=== PATIENT | female | born 1995 | race Caucasian/White ===

== ENCOUNTER 2017-12-21 07:08 | Emergency (ER) | payer BC ==
[2017-12-21] MEDS ORDERED: Ondansetron ODT TAB* 4 MG PO ONE (07:18)
[2017-12-21 07:26] VITALS: BP 126/78
--- NOTE | 2017-12-21 17:29 | UC ---
Brock Rodrigues Angela, scribed for Jermaine Carpenter MD on 12/21/17 at 0714 . General HPI - HPI Summary HPI Summary: This pt is a 22 y/o female presenting to [facility] c/o dizziness, nausea, headache since yesterday and abdominal pain since today. She describes her dizziness like feeling of almost passing out. Pt additionally notes sore throat and runny nose since 3 days ago, now worsening. Pt states she believes she might have the flu. Denies fever, chest pain, SOB. Pt has history of type 1 insulin dependent diabetes and her glucose level normally runs between 160 and 180. Pt admits to occasional alcohol use, denies tobacco or drug use. - History of Current Complaint Stated Complaint: CONGESTED, VOMITTING, LIGHTHEADED Time Seen by Provider: 12/21/17 07:10 Hx Obtained From: Patient Onset/Duration: Lasting Days, Still Present Timing: Constant Current Severity: Moderate Pain Location at: abdomen, head Aggravating: nothing Alleviating: nothing Associated Signs & Symptoms: Positive: Abdominal Pain, Dizziness, Headache, Nausea, Other - POS: sore throat, sinus congestion, runny nose. Negative: Chest Pain, Fever, SOB - Allergy/Home Medications Allergies/Adverse Reactions: Allergies Allergy/AdvReac Type Severity Reaction Status Date / Time No Known Allergies Allergy Verified 12/21/17 07:14 PMH/Surg Hx/FS Hx/Imm Hx Endocrine History: Diabetes - type 1 Other Cardiovascular History: DENIES: HTN - Surgical History Surgical History: None - Family History Known Family History: Positive: Diabetes - type 1 and 2 Negative: Cardiac Disease, Hypertension - Social History Alcohol Use: Occasionally Substance Use Type: None Smoking Status (MU): Never Smoked Tobacco Review of Systems Constitutional: Negative Skin: Negative Eyes: Negative ENT: Sore Throat, Nasal Discharge, Sinus Congestion Respiratory: Negative Cardiovascular: Negative Gastrointestinal: Abdominal Pain, Nausea Genitourinary: Negative Motor: Negative Neurovascular: Negative Musculoskeletal: Negative Neurological: Headache, Other - POS: dizziness Psychological: Negative All Other Systems Reviewed And Are Negative: Yes Physical Exam - Summary Physical Exam Summary: VITAL SIGNS: Reviewed. GENERAL: Patient is a well-developed and nourished female who is lying comfortable in the stretcher. Patient is not in any acute respiratory distress. HEAD AND FACE: Normocephalic EYES: PERRLA, EOMI x 2. EARS: Hearing grossly intact. MOUTH: Oropharynx within normal limits. NECK: Supple, trachea is midline, no adenopathy, no JVD, no carotid bruit. CHEST: Symmetric, no tenderness at palpation LUNGS: Clear to auscultation bilaterally. No wheezing or crackles. CVS: Regular rate and rhythm, S1 and S2 present, no murmurs or gallops appreciated. ABDOMEN: Soft, non-tender. Bowel sounds are normal. No abdominal abnormal pulsations. EXTREMITIES: Full ROM in all major joints, no edema, no cyanosis or clubbing. NEURO: Alert and oriented x 3. No acute neurological deficits. Speech is normal and follows commands. SKIN: Dry and warm Triage Information Reviewed: Yes Vital Signs Reviewed: Yes Re-Evaluation - Re-Evaluation First Eval Re-Evaluation Time: 07:59 Change: Unchanged Comment: Pt still has lower abd pain and dizziness. Pt has ketones in POC urine and is a type 1 diabetic. Therefore she will be transferred to the ED. Course/Dx - Course Course Of Treatment: This pt is a 22 y/o female presenting to [facility] c/o dizziness , nausea, abdominal pain, headache. Pt additionally notes sore throat and runny nose since 3 days ago. She describes her dizziness like feeling of almost passing out. Pt states she believes she might have the flu. Pt has hx of type 1 insulin dependent diabetes and her glucose level normally runs between 160 and 180. Influenza A and B are both negative. Rapid strep test is negative. POC urine shows 3+ ketones and 1+ bilirubin. In the UC course the pt was given Zofran. On re-evaluation the pt still has lower abd pain and dizziness. Since she has ketones in her urine and is a type 1 diabetic, pt will be transferred to the ED for further assessment. Pt was offered ambulance but she declined ambulance, she will go to the ED by private car. Test resulst and findings were discussed with the patient and pt understands and agrees. All questions were answered to patient satisfaction. Pt will be discharged to go immediately to the emergency department. Pt is hemodynamically stable, alert and oriented x3. The patient was found to have increased blood pressure in UC. The patient will follow up with PCP for better control of BP. - Differential Dx - Multi-Symptom Provider Diagnoses: Dizziness. Abdominal pain. Nausea Discharge - Sign-Out/Discharge Documenting (check all that apply): Discharge - discharge to home - Discharge Plan Condition: Stable Disposition: HOME Patient Education Materials: Acute Nausea and Vomiting (ED), Abdominal Pain (ED ), Dizziness (ED) Referrals: [facility] [Primary Care Provider] - Additional Instructions: Patient will discharged to the ED for further assessment. She declined ambulance. FOLLOW UP WITH YOUR PRIMARY CARE PROVIDER WITHIN ONE WEEK FOR HIGH BLOOD PRESSURE NOTED TODAY. RETURN TO URGENT CARE OR THE ED FOR ANY WORSENING OR NEW SYMPTOMS. The documentation as recorded by the Brock mena Angela accurately reflects the service I personally performed and the decisions made by , Jermaine Carpenter MD.
== END 2017-12-21 08:13 | disposition home or self-care (01) ==
LOC: UCEAST 07:08
DX: R42 Dizziness and giddiness (principal); R10.30 Lower abdominal pain, unspecified; R11.0 Nausea; R51 Headache; J02.9 Acute pharyngitis, unspecified; R09.89 Other specified symptoms and signs involving the circulatory and respiratory systems; Z32.02 Encounter for pregnancy test, result negative; E10.9 Type 1 diabetes mellitus without complications; Z79.4 Long term (current) use of insulin
CPT/HCPCS: 81003; 84702; 87502; 87651; 99212; A9270-GY; G0463

== ENCOUNTER 2017-12-21 08:33 | Emergency (ER) | payer BC ==
[2017-12-21] MEDS ORDERED: NS 0.9% 1000 ML* 2,000 ML IV ONE (08:55)
[2017-12-21] MEDS ORDERED: Ondansetron INJ* 2 MG/ML VIAL IV ONE (08:55)
[2017-12-21 09:18] LABS: ABS Basophils 0.1 10^3/ul (0-0.2); ABS Eosinophils 0.1 10^3/ul (0-0.6); ABS Lymphocytes 1.2 10^3/ul (1.0-4.8); ABS Monocytes 1.1 10^3/ul (0-0.8); ABS Neutrophils 5.6 10^3/ul (1.5-7.7); ABS Nucleated RBC 0 10^3/ul; Eosinophil % 1.3 % (0-6); Hematocrit 41 % (35-47); Hemoglobin 13.9 g/dl (12.0-16.0); Lymphocyte % 14.6 % (25-47); Mean Corpuscular HGB Conc 34 g/dl (31-36); Mean Corpuscular Hemoglobin 29 pg (27-31); Mean Corpuscular Volume 86 fL (80-97); Mean Platelet Volume 7.9 um3 (7.4-10.4); Nucleated Red Blood Cells % 0.1; Platelet Count 328 10^3/ul (150-450); Red Blood Count 4.78 10^6/ul (4.0-5.4); Red Cell Distribution Width 14 % (10.5-15); White Blood Count 8.1 10^3/ul (3.5-10.8)
[2017-12-21 09:37] LABS: EGFR Non-African American 94.6 (>60)
[2017-12-21] MEDS ORDERED: Acetaminophen TAB* 325 MG PO ONE (10:24)
[2017-12-21 10:49] LABS: Urine Appearance Clear; Urine Blood 1+ (Negative); Urine Color Straw; Urine Ketones 1+ (Negative); Urine Protein Negative (Negative); Urine Specific Gravity 1.007 (1.010-1.030); Urine Urobilinogen Negative (Negative)
[2017-12-21 10:55] VITALS: BP 108/92
--- NOTE | 2017-12-21 10:56 | ED ---
Teddy Rodrigues Thomas, scribed for Luis Angel Marino MD on 12/21/17 at 0855 . Complex/Multi-Sys Presentation - HPI Summary HPI Summary: The patient is a 22 year old female transferred from urgent care. Past medical history includes Type 1 DM and she is on Humalog and Toujeo. She complains of intermittent crampy lower abdominal pain. She also complains of headache, nausea , dizziness, sore throat, runny nose, body aches, fatigue, and anorexia. She denies vomiting, dysuria, and diarrhea. - History Of Current Complaint Chief Complaint: EDFluSymptoms Time Seen by Provider: 12/21/17 08:40 Hx Obtained From: Patient Onset/Duration: Still Present Timing: Intermittent, Lasting: Severity Currently: Moderate Location: Pain At: - abdomen Character: Unable To Describe - crampy Aggravating Factor(s): None Alleviating Factor(s): None Associated Signs And Symptoms: Positive: Other - Abd pain, headache, nausea, dizziness, sore throat, runny nose, body aches, fatigue, anorexia; NEGATIVE: vomiting, dysuria, diarrhea - Allergies/Home Medications Allergies/Adverse Reactions: Allergies Allergy/AdvReac Type Severity Reaction Status Date / Time No Known Allergies Allergy Verified 12/21/17 07:14 Home Medications: Home Medications Insulin Glargine (Nf) [Toujeo Solostar Pen (NF)] 36 unit SUBCUT BEDTIME [History Confirmed 12/21/17] Insulin Lispro [Humalog Kwikpen] 20 units SUBCUT TID 12/21/17 [History Confirmed 12/21/17] PMH/Surg Hx/FS Hx/Imm Hx Endocrine/Hematology History: Reports: Hx Diabetes - Type I Denies: Hx Thyroid Disease Cardiovascular History: Denies: Hx Hypertension Respiratory History: Denies: Hx Asthma, Hx Chronic Obstructive Pulmonary Disease (COPD) GI History: Denies: Hx Ulcer Infectious Disease History: No Infectious Disease History: Denies: Hx Hepatitis, Hx Human Immunodeficiency Virus (HIV), Traveled Outside the [place] in Last 30 Days - Family History Known Family History: Positive: Diabetes - Social History Occupation: Student Alcohol Use: Rare Substance Use Type: Reports: None Smoking Status (MU): Never Smoked Tobacco Review of Systems Positive: Fatigue. Negative: Fever Positive: Sore Throat, Nasal Discharge Positive: Abdominal Pain, Nausea, Other - Anorexia. Negative: Vomiting, Diarrhea Negative: dysuria Positive: Myalgia Neurological: Other - Dizziness Positive: Headache All Other Systems Reviewed And Are Negative: Yes Physical Exam - Summary Physical Exam Summary: General: mildly ill-appearing, no pain distress Skin: warm, color reflects adequate perfusion, dry Head: normal Eyes: EOMI, VINNY ENT: Positive rhinorrhea. Otherwise normal. Neck: supple, nontender Respiratory: CTA, breath sounds present Cardiovascular: RRR Abdomen: soft, nontender Bowel: present Musculoskeletal: normal, strength/ROM intact Neurological: normal, sensory/motor intact, A&O x3 Psychological: affect/mood appropriate Triage Information Reviewed: Yes Vital Signs On Initial Exam: Initial Vitals Temp Pulse Resp BP Pulse Ox 98.8 F 91 16 129/86 96 12/21/17 08:35 12/21/17 08:35 12/21/17 08:35 12/21/17 08:35 12/21/17 08:35 Vital Signs Reviewed: Yes Diagnostics - Vital Signs Vital Signs Temp Pulse Resp BP Pulse Ox 12/21/17 08:35 98.8 F 91 16 129/86 96 - Laboratory Lab Results: Lab Results 12/21/17 12/21/17 12/21/17 Range/Units 09:05 09:05 09:05 WBC 8.1 (3.5-10.8) 10^3/ul RBC 4.78 (4.0-5.4) 10^6/ul Hgb 13.9 (12.0-16.0) g/dl Hct 41 (35-47) % MCV 86 (80-97) fL MCH 29 (27-31) pg MCHC 34 (31-36) g/dl RDW 14 (10.5-15) % Plt Count 328 (150-450) 10^3/ul MPV 7.9 (7.4-10.4) um3 Neut % (Auto) 69.4 (38-83) % Lymph % (Auto) 14.6 L (25-47) % [place] % (Auto) 13.9 H (0-7) % Eos % (Auto) 1.3 (0-6) % Baso % (Auto) 0.8 (0-2) % Absolute Neuts (auto) 5.6 (1.5-7.7) 10^3/ul Absolute Lymphs (auto) 1.2 (1.0-4.8) 10^3/ul Absolute Monos (auto) 1.1 H (0-0.8) 10^3/ul Absolute Eos (auto) 0.1 (0-0.6) 10^3/ul Absolute Basos (auto) 0.1 (0-0.2) 10^3/ul Absolute Nucleated RBC 0 10^3/ul Nucleated RBC % 0.1 Sodium 133 L (139-145) mmol/L Potassium 4.0 (3.5-5.0) mmol/L Chloride 98 L (101-111) mmol/L Carbon Dioxide 22 (22-32) mmol/L Anion Gap 13 H (2-11) mmol/L BUN 16 (6-24) mg/dL Creatinine 0.77 (0.51-0.95) mg/dL Est GFR ( Amer) 121.7 (>60) Est GFR (Non-Af Amer) 94.6 (>60) BUN/Creatinine Ratio 20.8 H (8-20) Glucose 283 H (70-100) mg/dL Lactic Acid 0.9 (0.5-2.0) mmol/L Calcium 9.1 (8.6-10.3) mg/dL Total Bilirubin 0.40 (0.2-1.0) mg/dL AST 15 (13-39) U/L ALT 11 (7-52) U/L Alkaline Phosphatase 125 H (34-104) U/L C-Reactive Protein 106.86 H (< 5.00) mg/L Total Protein 7.3 (6.4-8.9) g/dL Albumin 3.9 (3.2-5.2) g/dL Globulin 3.4 (2-4) g/dL Albumin/Globulin Ratio 1.1 (1-3) Lipase < 10 L (11.0-82.0) U/L Beta HCG, Quant < 0.60 mIU/mL Result Diagrams: 12/21/17 09:05 12/21/17 09:05 Lab Statement: Any lab studies that have been ordered have been reviewed, and results considered in the medical decision making process. Complex Multi-Symp Course/Dx Course Of Treatment: IMPROVED IN THE ED. NO NECK STIFFNESS. DISCUSSED RESULTS WITH PATIENT TO INCLUDE ELEVATED BLOOD SUGAR. PATIENT WISHES TO GO, DOES NOT WISH FURTHER ED EVALUATION AND TREATMENT. DISCUSSED STARTING ANTIBIOTICS. PATIENT PREFERS TO START ABX. SHE TELLS ME SHE ALWAYS GETS VAGINAL YEAST INFECTIONS WITH ABX AND REQUIRES DIFLUCAN DAILY WHILE ON ABX. F/U PMD; RETURN IF WORSE. Assessment/Plan: Medications reviewed. BP noted and patient urged to follow up with primary care. - Diagnoses Provider Diagnoses: Elevated BP without diagnosis of hypertension, Headache, Upper respiratory infection, Nausea, Abdominal pain, Diabetes mellitus with hyperglycemia Discharge - Sign-Out/Discharge Documenting (check all that apply): Discharge - Discharge Plan Condition: Stable Disposition: HOME Prescriptions: Amoxicillin/Clavulanate TAB* [Augmentin TAB 875*] 875 mg PO BID #20 tab Fluconazole [Diflucan 150 MG (NF)] 150 mg PO ONCE #7 tab Ondansetron ODT TAB* [Zofran 4 MG Odt TAB*] 4 mg PO Q6H PRN #10 tab.odt PRN Reason: Nausea Patient Education Materials: Upper Respiratory Infection (ED), Acute Headache ( ED), Managing Diabetes During Sick Days (ED), Acute Abdominal Pain (ED) Referrals: [facility] [Primary Care Provider] - Additional Instructions: FOLLOW UP WITH YOUR DOCTOR. RETURN TO THE EMERGENCY DEPARTMENT FOR ANY WORSENING OF YOUR CONDITION OR QUESTIONS OR CONCERNS. - Billing Disposition and Condition Condition: STABLE Disposition: HOME The documentation as recorded by the Teddy mena Thomas accurately reflects the service I personally performed and the decisions made by me, Luis Angel Marino MD.
== END 2017-12-21 10:55 | disposition home or self-care (01) ==
LOC: ED 08:33
DX: J06.9 Acute upper respiratory infection, unspecified (principal); R03.0 Elevated blood-pressure reading, without diagnosis of hypertension; E10.65 Type 1 diabetes mellitus with hyperglycemia; R10.9 Unspecified abdominal pain; R51 Headache; J02.9 Acute pharyngitis, unspecified; R42 Dizziness and giddiness; R53.83 Other fatigue; R63.0 Anorexia; R11.0 Nausea
CPT/HCPCS: 36415; 80053; 81003; 81015; 83605; 83690; 84702; 85025; 86140; 86308; 87086; 96361; 96374; 99282; A9270-GY; J2405

== ENCOUNTER 2018-01-06 19:36 | Inpatient (IN) | payer BC ==
[2018-01-06] MEDS ORDERED: NS 0.9% 1000 ML* 2,000 ML IV ONE (19:51)
[2018-01-06] MEDS ORDERED: Insulin REGULAR(*) 1 UNITS UNIT IV PUSH ONE (19:53)
[2018-01-06] MEDS ORDERED: Morphine VIAL* 4 MG/ML VIAL (1 ml vial) IV ONE (19:54)
[2018-01-06 20:17] LABS: EGFR Non-African American 86.8 (>60)
[2018-01-06 20:31] LABS: ABS Basophils 0 10^3/ul (0-0.2); ABS Eosinophils 0 10^3/ul (0-0.6); ABS Lymphocytes 0.9 10^3/ul (1.0-4.8); ABS Monocytes 0.6 10^3/ul (0-0.8); ABS Neutrophils 3.9 10^3/ul (1.5-7.7); ABS Nucleated RBC 0 10^3/ul; Eosinophil % 0.3 % (0-6); Hematocrit 40 % (35-47); Hemoglobin 13.2 g/dl (12.0-16.0); Lymphocyte % 16.9 % (25-47); Mean Corpuscular HGB Conc 33 g/dl (31-36); Mean Corpuscular Hemoglobin 29 pg (27-31); Mean Corpuscular Volume 88 fL (80-97); Mean Platelet Volume 8.1 um3 (7.4-10.4); Nucleated Red Blood Cells % 0; Platelet Count 311 10^3/ul (150-450); Red Blood Count 4.57 10^6/ul (4.0-5.4); Red Cell Distribution Width 14 % (10.5-15); White Blood Count 5.5 10^3/ul (3.5-10.8)
--- NOTE | 2018-01-06 20:36 | RAD ---
HISTORY: Chest pain COMPARISONS: None VIEWS: 1: frontal portable view of the chest at 8:25 PM FINDINGS: LINES AND TUBES: None. CARDIOMEDIASTINAL SILHOUETTE: The cardiomediastinal silhouette is normal for portable technique. PLEURA: The costophrenic angles are sharp. No pleural abnormalities are noted. LUNG PARENCHYMA: The lungs are clear. ABDOMEN: The upper abdomen is clear. There is no subphrenic gas. BONES AND SOFT TISSUES: No bone or soft tissue abnormalities are noted. IMPRESSION: NO ACTIVE CARDIOPULMONARY DISEASE.
[2018-01-06 20:41] LABS: INR 0.97 (0.77-1.02)
[2018-01-06 20:50] LABS: Urine Appearance Clear; Urine Blood Negative (Negative); Urine Color Straw; Urine Ketones 2+ (Negative); Urine Protein Negative (Negative); Urine Specific Gravity 1.025 (1.010-1.030); Urine Urobilinogen Negative (Negative)
--- NOTE | 2018-01-06 20:51 | ED ---
Teddy Rodrigues Thomas, scribed for Hollie Farmer MD on 01/06/18 at 2006 . Complex/Multi-Sys Presentation - HPI Summary HPI Summary: The patient is a 22 year old female brought in by ambulance complaining of chest pain that began two hours ago. The patient has been nauseous for the last two days. She complains of some diarrhea. Past medical history includes Type I DM, and the patient is on Humalog and Toujeo. Her blood sugar was measured by EMS to be 400. She last ate at 11:00, and she had a bagel. - History Of Current Complaint Chief Complaint: EDChestWallPain Time Seen by Provider: 01/06/18 19:42 Hx Obtained From: Patient Onset/Duration: Lasting Hours - 2, Still Present Timing: Constant Severity Currently: Moderate Location: Pain At: - chest Aggravating Factor(s): Chest is tender Alleviating Factor(s): None Associated Signs And Symptoms: Positive: Other - CP, elevated blood sugar, diarrhea, nausea Related History: Other - Hx T1DM - Allergies/Home Medications Allergies/Adverse Reactions: Allergies Allergy/AdvReac Type Severity Reaction Status Date / Time No Known Allergies Allergy Verified 01/06/18 20:00 Home Medications: Home Medications Insulin Glargine (Nf) [Toujeo Solostar Pen (NF)] 28 unit SUBCUT BEDTIME [History Confirmed 01/06/18] Insulin LISPRO* [HumaLOG*] 1 - 10 units SUBCUT TID AC 01/06/18 [History Confirmed 01/06/18] PMH/Surg Hx/FS Hx/Imm Hx Endocrine/Hematology History: Reports: Hx Diabetes - Type I Denies: Hx Thyroid Disease Cardiovascular History: Denies: Hx Hypertension Respiratory History: Denies: Hx Asthma, Hx Chronic Obstructive Pulmonary Disease (COPD) GI History: Denies: Hx Ulcer Infectious Disease History: No Infectious Disease History: Denies: Hx Hepatitis, Hx Human Immunodeficiency Virus (HIV), Traveled Outside the [place] in Last 30 Days - Family History Known Family History: Positive: Diabetes - Social History Alcohol Use: Rare Substance Use Type: Reports: None Smoking Status (MU): Never Smoked Tobacco Review of Systems Positive: Other - Elevated blood sugar Positive: Chest Pain Positive: Diarrhea, Nausea All Other Systems Reviewed And Are Negative: Yes Physical Exam - Summary Physical Exam Summary: VITAL SIGNS: Reviewed. GENERAL: Patient is a well-developed and nourished female who is lying comfortable in the stretcher. Patient is not in any acute respiratory distress. HEAD AND FACE: No signs of trauma. No ecchymosis, hematomas or skull depressions. No sinus tenderness. EYES: PERRLA, EOMI x 2, No injected conjunctiva, no nystagmus. EARS: Hearing grossly intact. Ear canals and tympanic membranes are within normal limits. MOUTH: Oropharynx within normal limits. NECK: Supple, trachea is midline, no adenopathy, no JVD, no carotid bruit, no c- spine tenderness, neck with full ROM. CHEST: Symmetric. She has chest tenderness. LUNGS: Clear to auscultation bilaterally. No wheezing or crackles. CVS: Regular rate and rhythm, S1 and S2 present, no murmurs or gallops appreciated. ABDOMEN: Soft, non-tender. No signs of distention. No rebound no guarding, and no masses palpated. Bowel sounds are normal. EXTREMITIES: FROM in all major joints, no edema, no cyanosis or clubbing. NEURO: Alert and oriented x 3. No acute neurological deficits. Speech is normal and follows commands. SKIN: Dry and warm Triage Information Reviewed: Yes Vital Signs On Initial Exam: Initial Vitals Pulse Resp BP Pulse Ox 105 18 133/81 99 01/06/18 19:41 01/06/18 19:41 01/06/18 19:41 01/06/18 19:41 Vital Signs Reviewed: Yes Diagnostics - Vital Signs Vital Signs Temp Pulse Resp BP Pulse Ox 01/06/18 19:57 99.0 F 104 18 133/81 99 01/06/18 19:41 105 18 133/81 99 - Laboratory Lab Results: Lab Results 01/06/18 Range/Units 19:49 POC Glucose (mg/dL) > 444 H* (70-100) mg/dL Result Diagrams: 01/06/18 20:05 01/06/18 19:51 Lab Statement: Any lab studies that have been ordered have been reviewed, and results considered in the medical decision making process. - Radiology CXR Xray Interpretation: No Acute Changes - Impression: No active cardiopulmonary disease. Dr. Farmer has reviewed this report. Radiology Interpretation Completed By: Radiologist - EKG 19:39 Cardiac Rate: Tachycardia EKG Rhythm: Sinus Tachycardia - at 105 BPM EKG Interpretation: Nonspecific ST changes. Complex Multi-Symp Course/Dx Assessment/Plan: The patient is a 22 year old female brought in by ambulance complaining of chest pain and nausea. She has Type 1 DM and her blood glucose was measured 400 by EMS. In the ED course, the patient was given insulin, morphine, and IV fluids. Bloodwork and CXR were obtained. EKG shows sinus tachycardia with nonspecific ST changes. The patient is diagnosed with DKA. The patient will be admitted to Dr. Quarles. 40 minutes of critical care time. - Diagnoses Provider Diagnoses: DKA (diabetic ketoacidoses) - Physician Notifications Discussed Care Of Patient With: Lauren Quarles Time Discussed With Above Provider: 20:44 Instructed by Provider To: Admit As Inpatient - Critical Care Time Critical Care Time: 30-74 min - 40 minutes CCT Discharge - Sign-Out/Discharge Documenting (check all that apply): Discharge/Admit/Transfer - Discharge Plan Condition: Critical Disposition: ADMITTED TO [facility] [Primary Care Provider] - The documentation as recorded by the Teddy mena Thomas accurately reflects the service I personally performed and the decisions made by , Hollie Farmer MD.
[2018-01-06] MEDS ORDERED: Insulin IVPB 100 units/100 ml 100 UNITS/100 ML UNIT IVPB SCH (21:00)
[2018-01-06] MEDS ORDERED: Iodixanol* (CONTRAST) 320 MG/ML 100 ML SDV IV ONE (21:22)
--- NOTE | 2018-01-06 21:57 | RAD ---
HISTORY: Chest pain COMPARISONS: None TECHNIQUE: Multiple contiguous axial CT scans of the chest were obtained after the administration of nonionic intravenous contrast, timed to the pulmonary arterial phase of contrast enhancement.. Coronal and sagittal multiplanar reformations are also submitted for review. FINDINGS: NECK AND THYROID: The lower neck and thyroid are unremarkable. CHEST WALL: There is no lower cervical, axillary, or supraclavicular lymphadenopathy by size criteria. HEART AND PERICARDIUM: The heart is unremarkable. AORTA AND PULMONARY VASCULATURE: There is no pulmonary arterial filling defect to suggest pulmonary embolism. There is no linear filling defect within the aorta to suggest aortic dissection. MEDIASTINUM: There is no mediastinal lymphadenopathy by size criteria. ONEIDA: There is no hilar lymphadenopathy by size criteria. AIRWAY AND ESOPHAGUS: The airway is unremarkable, without endobronchial filling defect. The esophagus is grossly normal. LUNG PARENCHYMA: The lungs are clear. PLEURA: No pleural abnormalities are noted. UPPER ABDOMEN: The upper abdomen is unremarkable. BONES AND SOFT TISSUES: No bone or soft tissue abnormalities are noted. OTHER: None. IMPRESSION: NO PULMONARY ARTERIAL FILLING DEFECT TO SUGGEST PULMONARY EMBOLISM.
[2018-01-06] MEDS: Morphine VIAL* 4 MG/ML VIAL (1 ml vial) IV PRN (22:18)
--- NOTE | 2018-01-06 23:21 | HP ---
CC: [facility] * HISTORY AND PHYSICAL: DATE OF ADMISSION: 01/06/18 PRIMARY CARE PROVIDER: [facility]. CHIEF COMPLAINT: Chest pain. HISTORY OF PRESENT ILLNESS: Ms. Reyes is a 22-year-old female, who states that she presented to the emergency room due to severe centrally located chest pain. She describes this beginning at approximately 5 p.m. The patient states that the day prior to admission, she vomited 3 times in the morning. She really did not eat much. She does state that she took her Toujeo last evening, but did not utilize any of her other insulin. She did not really eat much on the day of admission and took a small dose of Humalog in the afternoon. Following the onset of the chest pain, she again vomited. She describes the chest pain as coming and going and being very severe in nature. She is unable to describe it for me saying that it is just incapacitating. She denies any recent long distance travel. She denies any calf pain. The patient does state that approximately 2 weeks ago, she had a URI. She states that she believes this has completely resolved. She was started on antibiotics at that time. She completed that course of antibiotic. She believes that she got a facial rash from the antibiotic. She was started on Augmentin. PAST MEDICAL HISTORY: Type 1 diabetes. PAST SURGICAL HISTORY: None. MEDICATIONS: 1. Toujeo 28 units subcutaneous q.h.s. 2. Lispro 1 unit for every 10 g of carbs ingested. ALLERGIES: She states facial rash secondary to AUGMENTIN. FAMILY HISTORY: Mom is living, she is 56 and has RA. Dad is also living, he is 57, and has type 1 diabetes. SOCIAL HISTORY: The patient does not smoke. She drinks alcohol on occasion. She utilizes marijuana occasionally. She is a student at [employer]. She is not . She has no children. She indicates that her mom, Lisa, phone number , is her healthcare proxy. REVIEW OF SYSTEMS: The patient denies any fevers. She states her appetite has been poor over the last 2 days. She admits to the chest pain as above. No lower extremity edema. No cough, no shortness of breath. She does state, however, it hurts and it is hard to take a deep breath. She admits to the nausea, vomiting as above. She also admits to diarrhea that began yesterday. She has diffuse abdominal pain, but again will not quantify or qualify this for me stating that the chest pain overshadows the abdominal pain. She denies any hematochezia. No hematuria, no dysuria. She admits to generalized weakness. No sudden changes in vision. No dysphagia. No joint pains or muscle pains out of the ordinary. No rashes. She states that she feels depressed when she is sick. PHYSICAL EXAMINATION GENERAL: The patient is a well-developed young female, lying in the bed, screaming out in pain, complaining of chest discomfort. VITAL SIGNS: Blood pressure 133/81, pulse 104, respirations 18, temp 99.0, O2 sat 99% on room air. HEENT: Pupils are equal and round. Extraocular muscles are intact. Oropharynx is clear. Oral mucosa is moist. There is no submandibular, cervical , or supraclavicular adenopathy. Thyroid is not enlarged. No thyroid nodules are noted. PULMONARY: Lungs are clear to auscultation anteriorly. CARDIAC: Normal S1, S2. Heart rate is tachycardic, but regular. I do not appreciate any murmurs. There is no lower extremity edema. ABDOMEN: Bowel sounds present. Abdomen is soft, nondistended. She states it is mildly tender to palpation. MUSCULOSKELETAL: There is no cyanosis or clubbing of the digits. There is full active range of motion of all 4 extremities. SKIN: Warm and dry. There are no rashes. NEUROLOGIC: Cranial nerves II through XII are grossly intact. Sensation is intact to light touch throughout. Strength is 5/5 and symmetric in both upper and lower extremities bilaterally. PSYCH: The patient is alert. She is oriented x3. DIAGNOSTIC STUDIES/LAB DATA: WBC 5.5, hemoglobin 13.2, hematocrit 40, platelets 311. INR 0.97. Sodium 131, potassium 4.7, chloride 98, CO2 10, anion gap 23, BUN 16, creatinine 0.83, glucose 449, calcium 8.7. Magnesium 1.8. Bilirubin 0.4, AST 20, ALT 17, alk phos 105. CPK 35. Troponin 0. Albumin 3.6. Amylase 21, lipase less than 10. EKG reveals sinus tachycardia without any acute ST-T wave abnormalities. Chest x-ray: No active cardiopulmonary disease. ASSESSMENT AND PLAN: Ms. Reyes is a 22-year-old female with a history of type 1 diabetes, who presents to the emergency room with complaints of severe chest pain and was found to be in diabetic ketoacidosis. 1. Chest pain. Given her age, I doubt that this is coronary artery disease, but differential diagnosis would include esophagitis related to her vomiting versus pulmonary embolism, which seems unlikely. She has no lower extremity edema and no reported history of long distance travel. Boerhaave syndrome is a potential; however, seems unlikely as the patient does not look acutely ill. Given how severe the patient's pain is, I will get a CTA of the chest, this will rule out pulmonary embolism. We will also be able to evaluate her mediastinum. During the course of my time in the room with the patient, the pain did let up and she stopped screaming. A gas discomfort would also be a consideration, but would be a diagnosis of exclusion. She will have p.r.n. morphine available for pain. 2. Diabetic ketoacidosis. The patient states that she has not been eating much over the last 2 days as she has been vomiting. I question if she may have a gastroenteritis. This could have tipped her over the edge as she has not been eating, she has not been taking her insulin directly as prescribed. The patient will be admitted to the intensive care unit and placed on an insulin drip. Fingersticks will be obtained every 1 hour. She will receive LR 150 mL per hour with a repeat basic metabolic panel at 0100 on 01/07/18. 3. DVT prophylaxis. According to the Adult Thrombosis Prophylaxis Risk Factor Assessment Guide, the patient has a total risk factor score of 1 making her low risk. Ambulation will be utilized as DVT prophylaxis. Code status is full. TIME SPENT: 65 minutes were spent admitting this patient. [id number]/[facility] #: [id number] CARLOS
[2018-01-06] MEDS: Heparin VIAL(*) 5000 UNITS/ML VIAL (FIVE THOUSAND) SUBCUT SCH (23:28)
[2018-01-07] MEDS ORDERED: D5W 1/2 NS 1000 ML BAG* 1,000 ML IV SCH ×2 (04:00→05:25)
[2018-01-07] MEDS: Heparin VIAL(*) 5000 UNITS/ML VIAL (FIVE THOUSAND) SUBCUT SCH ×2 (06:12→14:26)
[2018-01-07] MEDS: Morphine VIAL* 4 MG/ML VIAL (1 ml vial) IV PRN (06:35)
[2018-01-07 06:45] LABS: Hematocrit 40 % (35-47); Hemoglobin 13.5 g/dl (12.0-16.0); Mean Corpuscular HGB Conc 34 g/dl (31-36); Mean Corpuscular Hemoglobin 29 pg (27-31); Mean Corpuscular Volume 87 fL (80-97); Mean Platelet Volume 7.7 um3 (7.4-10.4); Platelet Count 304 10^3/ul (150-450); Red Blood Count 4.63 10^6/ul (4.0-5.4); Red Cell Distribution Width 14 % (10.5-15); White Blood Count 7.5 10^3/ul (3.5-10.8)
[2018-01-07 07:02] LABS: EGFR Non-African American 123.8 (>60)
[2018-01-07] MEDS ORDERED: Al Hydrox/Mg Hydrox/Simet LIQ* 30 ML UDC PO ONE (07:33)
[2018-01-07] MEDS ORDERED: Lidocaine 2% VISCOUS* 15 ML UDC PO ONE (07:33)
[2018-01-07] MEDS ORDERED: Dextrose 50% Syringe 50 ML* 25 GM/50 ML SYRINGE IV PUSH PRN (07:36)
[2018-01-07] MEDS ORDERED: Al Hydrox/Mg Hydrox/Simet LIQ* 30 ML UDC ONE (07:39)
[2018-01-07] MEDS ORDERED: Lidocaine 2% VISCOUS* 15 ML UDC ONE (07:39)
[2018-01-07] MEDS ORDERED: Al Hydrox/Mg Hydrox/Simet LIQ* 30 ML UDC PO PRN (07:46)
[2018-01-07] MEDS ORDERED: Insulin GLARGINE(*) 1 UNITS UNIT SUBCUT SCH (08:00)
[2018-01-07] MEDS: Omeprazole CAP* 20 MG PO SCH ×2 (08:08→08:48)
[2018-01-07] MEDS ORDERED: Morphine VIAL* 4 MG/ML VIAL (1 ml vial) IV ONE ×2 (09:44)
[2018-01-07] MEDS: Insulin LISPRO* 1 UNITS UNIT SUBCUT SCH ×2 (09:58→14:01)
[2018-01-07] MEDS ORDERED: Ibuprofen TAB* 600 MG PO SCH (11:00)
[2018-01-07] MEDS ORDERED: NS 0.9% 500 ML* 500 ML IV SCH (11:00)
[2018-01-07 12:27] VITALS: BP 126/80
--- NOTE | 2018-01-07 15:00 | PN ---
School Excuse - School Note School Note: Patient:NAOMI GORDON Date:01/07/18 Time: 1457 The student was evaluated here today. The physician has determined that school absence is not medically necessary. She can resume her regular activities in school as long as she follows our recommendations and instructions. Date of onset of illness or injury: [X] 01/06/18 (now resolved) Excuse from school 01/07/18 through []. 01/07/18 Hernesto Monique MD Date
--- NOTE | 2018-01-08 04:15 | DS ---
CC: Dr. Quarles; Dr. Farmer * DISCHARGE SUMMARY: DATE OF ADMISSION: DATE OF DISCHARGE: DISCHARGE DIAGNOSES: As follows: 1. Diabetic ketoacidosis, resolved. 2. Costochondritis. HISTORY OF PRESENT ILLNESS/HOSPITAL COURSE: The patient is a 22-year-old female with history of diabetes mellitus type 1, who presented to the emergency room on 01/06/18 due to severe centrally located chest pain where she described at approximately 5 p.m. on the day of her admission, her chest pain began and in addition, she also vomited 3 times in the morning. Upon evaluation , she was found to have high anion gap, metabolic acidosis consistent with DKA and she was admitted to the ICU and placed on an insulin drip protocol and upon subsequent revaluation the following morning when I came in, her gap was already narrowed and at which point she was transitioned from IV insulin to subcu insulin, which she has tolerated. Her chest pain has been evaluated by CT angio, which did not show any concerning lesions for pulmonary embolism and her troponin on presentation was 0.00. On further re-examination, she clearly has tenderness on the sternal area where she quenches when touched and palpated in the area, hence likely suggestive of costochondritis. Given her KRISTINA score is very minimal and is 0 and she is currently 22 years old with no significant family history of coronary artery disease, it is unlikely that any further cardiological workup would be of benefit and in fact may lead to false positive. Therefore, she was started on ibuprofen 600 mg p.o. b.i.d. and she has been advised to continue this for 3 days and then to take it only as p.r.n. thereafter. She had been advised to follow up with her primary care physician within 3 days to 1 week post discharge and to take her medications as prescribed. Initially, the patient was offered to stay overnight to further control her chest pain; however, she is adamant that she did not want to stay. As mentioned , her chest pain is likely due to costochondritis and given her low KRISTINA score, any further cardiologic workup would unlikely be of benefit. PHYSICAL EXAMINATION: Shows the most recent vital signs of records with blood pressure of 126/80, 99% on room air, 100 beats per minute heart rate, respiratory rate of 10. General Appearance: The patient is awake, alert and oriented x3, not in acute distress. HEENT: Normocephalic, atraumatic. PERRLA. Extraocular muscles intact. Negative for icterus. Moist oral mucosa. Negative for throat erythema. Neck is soft, supple with no cervical lymphadenopathy, no JVD. Heart: S1, S2 within normal limits. Regular rate and rhythm. No murmurs, rubs, or gallops. Chest: Clear to auscultation bilaterally. Good air entry. No wheezes, rales, or rhonchi. Abdomen is soft, nondistended, nontender. Normoactive bowel sounds x4. Psychiatric: No active psychosis, depression, suicidal, or homicidal ideations. Skin is warm to touch. TIME SPENT: The total time spent evaluating the patient reviewing pertinent data and appropriate documentation is greater than 30 minutes. [id number]/[facility] #: [id number] MTDD
== END 2018-01-07 15:00 | disposition home or self-care (01) | DRG 420 ==
LOC: ED 19:36 → ICU 21:10
PROVIDERS: ADMIT Hospitalist; ATTEND Student in an Organized Health Care Education/Training Program
DX: E10.10 Type 1 diabetes mellitus with ketoacidosis without coma (principal); M94.0 Chondrocostal junction syndrome [Tietze]; F12.90 Cannabis use, unspecified, uncomplicated; Z88.1 Allergy status to other antibiotic agents; Z83.3 Family history of diabetes mellitus; Z82.61 Family history of arthritis; Z72.89 Other problems related to lifestyle
CPT/HCPCS: 36415; 71045; 71275; 80048; 80051; 80053; 81003; 82150; 82550; 82803; 82947; 83605; 83690; 83735; 84443; 84484; 84702; 85025; 85027; 85610; 85730; 87641; 93005; 99283; A9270-GY; J1644; J1815; J2270; Q9967